=== PATIENT | female | born 1940 | race Caucasian/White ===

== ENCOUNTER 2018-09-29 09:40 | Emergency (ER) | payer MEDICARE, OTHER ==
[~2018-09-29] VITALS: Wt 65.6 kg
[~2018-09-29 09:40] MED LIST: DOCU100T PO; GABA100C14 PO; LOSA50TA14 PO; MELO7.5T38 PO
[2018-09-29] MEDS ORDERED: ASPIRIN 325 MG TAB PO STA (10:44)
--- NOTE | 2018-09-29 10:47 | ERD ---
ER Documentation Chief Complaint Chief Complaint hypertension 190/119, headache since last night, took meds this morning HPI 77-year-old female, history of hypertension, anxiety and osteoarthritis status post remote left knee replacement presents to the ED complaining of high blood pressure since yesterday with multiple somatic complaints. Mild, gradual onset, pressure-like headache but no visual changes, focal weakness or numbness. Palpitations and mild shortness of breath bu no chest pain, nausea, vomiting or diaphoresis. Left lower extremity swelling which seems mildly worse than usual but no recent trauma or injury. No relieving or exacerbating factors. Denies abdominal pain or back pain. No URI symptoms, cough or hemoptysis. No fevers, chills, anorexia, night sweats or weight loss. Admits to feeling anxious but denies depression. ROS All systems reviewed and are negative except as per history of present illness. Medications Home Meds Reported Medications Hydrochlorothiazide* (Hydrochlorothiazide*) 25 Mg Tab, 25 MG PO DAILY, #30 TAB 09/29/18 Losartan Potassium* (Losartan Potassium*) 50 Mg Tablet, 50 MG PO DAILY, TAB 08/23/18 Docusate Sodium* (Dok*) 100 Mg Tablet, 100 MG PO DAILY, #30 CAP 08/23/18 Meloxicam* (Meloxicam*) 7.5 Mg Tablet, 7.5 MG PO DAILY, #30 TAB 08/23/18 Gabapentin* (Gabapentin*) 100 Mg Capsule, 100 MG PO TID, #90 CAP 08/23/18 Allergies Allergies: Coded Allergies: No Known Allergy (Unverified , 09/29/18) PMhx/Soc Reviewed in chart. As per HPI. Medical and Surgical Hx: pt denies Medical Hx History of Surgery: Yes (LEFT FOOT BUNIONECTOMY) Anesthesia Reaction: No Hx Neurological Disorder: No Hx Respiratory Disorders: Yes (OCC FEELS SOB) Hx Cardiac Disorders: Yes (HTN) Hx Psychiatric Problems: No Hx Miscellaneous Medical Probl: Yes (HTN) Hx Alcohol Use: No Hx Substance Use: No Hx Tobacco Use: No Smoking Status: Never smoker FmHx No stroke or cancer Physical Exam Vitals Vital Signs Date Temp Pulse Resp B/P (MAP) Pulse Ox O2 O2 Flow FiO2 Time Delivery Rate 09/29/18 98.2 81 20 161/80 99 Room Air 16:43 (107) 09/29/18 98.4 86 20 147/69 100 Room Air 15:46 (95) 09/29/18 98.4 78 18 170/69 99 Room Air 14:00 (102) 09/29/18 98.4 81 18 179/88 100 Room Air 12:00 (118) 09/29/18 98.4 88 18 190/119 99 09:58 (142) Physical Exam Const: Moderate distress, anxious. Head: Atraumatic Eyes: Pupils equal reactive light, extraocular movements are intact. Normal Conjunctiva ENT: Normal External Ears, Nose and Mouth. Pharynx is clear without erythema or exudate. Neck: Full range of motion. Thyromegaly. No stridor. No meningismus. Resp: Breath sounds are equal and clear to auscultation bilaterally. No rales rhonchi or wheezes Cardio: Regular rate and rhythm, no murmurs. No chest wall tenderness. Abd: Soft, non tender, non distended. Normal bowel sounds Skin: No petechiae or rashes Back: No midline or flank tenderness Ext: No cyanosis. mild, nonpitting swelling left lower extremity below the knee. No calf tenderness or erythema. Status post left knee arthroplasty. No tenderness. Full range of motion. Pulses 4+ in all extremities. Neur: Awake and alert. Cranial nerves II through XII are grossly intact. Motor and sensory equal bilaterally. No focal deficit. Psych: Cooperative. Anxious but not depressed. Result Diagram: 09/29/18 1026 09/29/18 1026 Results 24 hrs Laboratory Tests Test 09/29/18 10:26 09/29/18 11:17 White Blood Count 7.4 10^3/ul Red Blood Count 4.06 10^6/ul Hemoglobin 11.7 g/dl Hematocrit 36.3 % Mean Corpuscular Volume 89.4 fl Mean Corpuscular Hemoglobin 28.8 pg Mean Corpuscular Hemoglobin Concent 32.2 g/dl Red Cell Distribution Width 13.2 % Platelet Count 299 10^3/UL Mean Platelet Volume 10.0 fl Immature Granulocytes % 0.500 % Neutrophils % 66.8 % Lymphocytes % 23.8 % Monocytes % 6.6 % Eosinophils % 1.9 % Basophils % 0.4 % Nucleated Red Blood Cells % 0.0 /100WBC Immature Granulocytes # 0.040 10^3/ul Neutrophils # 4.9 10^3/ul Lymphocytes # 1.8 10^3/ul Monocytes # 0.5 10^3/ul Eosinophils # 0.1 10^3/ul Basophils # 0.0 10^3/ul Nucleated Red Blood Cells # 0.0 10^3/ul Sodium Level 140 mmol/L Potassium Level 3.9 mmol/L Chloride Level 105 mmol/L Carbon Dioxide Level 27 mmol/L Anion Gap 8 Blood Urea Nitrogen 17 mg/dl Creatinine 0.89 mg/dl Est Glomerular Filtrat Rate mL/min mL/min Glucose Level 97 mg/dl Calcium Level 10.2 mg/dl Total Bilirubin 0.4 mg/dl Direct Bilirubin 0.00 mg/dl Indirect Bilirubin 0.4 mg/dl Aspartate Amino Transf (AST/SGOT) 23 IU/L Alanine Aminotransferase (ALT/SGPT) 18 IU/L Alkaline Phosphatase 88 IU/L Total Protein 6.8 g/dl Albumin 3.9 g/dl Globulin 2.90 g/dl Albumin/Globulin Ratio 1.34 Thyroid Stimulating Hormone (TSH) 0.504 MIU/L Urine Color STRAW Urine Clarity CLEAR Urine pH 7.0 Urine Specific Justin 1.005 Urine Ketones NEGATIVE mg/dL Urine Nitrite NEGATIVE mg/dL Urine Bilirubin NEGATIVE mg/dL Urine Urobilinogen NEGATIVE mg/dL Urine Leukocyte Esterase NEGATIVE Abbie/ul Urine Microscopic RBC 1 /HPF Urine Microscopic WBC 3 /HPF Urine Hemoglobin 1+ mg/dL Urine Glucose NEGATIVE mg/dL Urine Total Protein NEGATIVE mg/dl Current Medications Medications Dose Sig/Michelle Start Time Status Last (Trade) Ordered Route PRN Stop Time Admin Dose Reason Admin Aspirin 325 mg ONCE STAT 09/29/18 DC (Aspirin) PO 10:44 09/29/18 10:47 650 mg ONCE ONCE 09/29/18 DC 09/29/18 Acetaminophen PO 11:00 11:21 (Tylenol 09/29/18 11:01 Tab) Aspirin 81 mg STK-MED 09/29/18 DC (Aspirin) ONCE .ROUTE 11:07 09/29/18 11:08 IV Flush 10 ml STK-MED 09/29/18 DC (NS 10 ml) ONCE .ROUTE 12:28 09/29/18 12:29 Sodium 100 ml @ ud STK-MED 09/29/18 DC Chloride ONCE .ROUTE 12:28 09/29/18 12:29 Iohexol 150 ml STK-MED 09/29/18 DC (Omnipaque ONCE .ROUTE 12:28 300mg/ ml) 09/29/18 12:29 Procedures/MDM DOCUMENTS REVIEWED: ED nurse, prior records EKG: Time: 1317. Sinus rhythm. Ventricular rate 100, normal MA and QRS intervals. No acute ST segment elevation or depression. No axis deviation or ectopy. My Interpretation: Normal EKG IMAGING: PROCEDURE: XR Chest. CLINICAL INDICATION: Chest pain TECHNIQUE: Single frontal view of the chest was obtained. COMPARISON: None FINDINGS: The heart is within normal limits. The thoracic aorta is calcified. There is increased right paratracheal density, which is likely vascular in nature. There is mild shift of the trachea to the right. A mediastinal mass cannot be excluded. There is no focal infiltrate. There is no pleural effusion or pneumothorax. RPTAT: AA IMPRESSION: Mild shift of the trachea to the right. A thyroid or mediastinal mass cannot be excluded. Follow-up CT chest with contrast is recommended. Calcified aorta consistent with atherosclerotic disease. .Omkar Kelley MD, MD Date Time Electronically viewed and signed by .Omkar Kelley MD, MD on 09/29/2018 11:36 PROCEDURE: US Lower extremity Venous. CLINICAL INDICATION: Left leg pain TECHNIQUE: Multiple sonographic images of the left lower extremity deep venous system was obtained utilizing grayscale, color-flow, compressive sonography and doppler imaging with augmentation. The images were reviewed on a PACS workstation. COMPARISON: None. FINDINGS: There is normal compressibility and flow within the left common femoral, deep femoral, superficial femoral, posterior tibial, peroneal and popliteal veins. IMPRESSION: No sonographic evidence for deep venous thrombosis. RPTAT: AA .Madi Phelan MD, Date Time Electronically viewed and signed by .Madi Phelan MD, MD on 09/29/2018 12:06 .J/ PROCEDURE: CT Chest with contrast. CLINICAL INDICATION: Mass TECHNIQUE: CT scan of the chest with contrast was performed on a multidetector high-resolution CT scanner. The patient was scanned following the uncomplicated intravenous administration of 100 cc of Omnipaque-300 contrast. Coronal and sagittal reformatted images were obtained from the axial source images. Images were reviewed on a high-resolution PACS workstation. The total exam CTDI equals 8.3 mGy and the total exam DLP equals 332 mGy-cm. DICOM images are available. One or more of the following dose reduction techniques were utilized: 1.) Automated exposure control 2.) Adjustment of the mA +/- kV according to patient's size 3.) Use of iterative reconstruction technique. COMPARISON: Chest x-ray earlier same date FINDINGS: The lungs are clear. No focal opacification, effusion, pneumothorax, edema, or nodules are seen. There is no pulmonary infiltrate. No mass lesion to suggest neoplasm is identified. The central tracheobronchial tree is clear. The mediastinum is unremarkable without evidence for mass or lymphadenopathy. There is asymmetric enlargement of the left lobe of the thyroid gland with a 3 cm complex solid and cystic nodule. This is causing the trachea to be shifted to the right. The vascular structures of the mediastinum are normal in course and caliber. Noted is a hiatal hernia.. The heart size is normal without evidence for pericardial thickening or effusion. Calcified nonenlarged right hilar nodes are present compatible with old granulomatous disease. The axillary regions, subpectoral regions, and supraclavicular regions are all unremarkable. The surrounding chest wall is unremarkable. Imaging obtained through the upper abdomen reveals no acute abnormality. Bilateral parapelvic renal cysts are present. The surrounding osseous structures are remarkable for degenerative spondylosis of the spine. No osteolytic or osteoblastic lesion is detected. There is kyphoscoliosis of the thoracic lumbar junction with mild chronic superior endplate compression fracture of T11. IMPRESSION: Enlarged left lobe thyroid gland with 3 cm complex mass causing mediastinal shift. Question adenoma. Correlation with ultrasound is suggested. No lung infiltrate or mass. Hiatal hernia. Old granulomatous disease. Parapelvic renal cysts. Kyphoscoliosis thoracic lumbar junction with mild chronic superior endplate compression fracture of T11 . .Chase Ash MD, Date Time Electronically viewed and signed by .Chase Ash MD, on 09/29/2018 12:58 .A/ REEXAMINATION/REEVALUATION: Time: 15:46 BP 147/69 [employer]-year-old female, history of hypertension, anxiety and osteoarthritis status post remote left knee replacement presents to the ED complaining of high blood pressure since yesterday with multiple complaints including hypertension, headache, palpitations, leg swelling and anxiety. CBC remarkable for mild anemia but no leukocytosis or thrombocytopenia. Chemistry reveals no evidence of renal insufficiency or electrolyte abnormalities. Liver function tests are normal. EKG is negative for ischemia or dysrhythmia. Chest x-ray negative for infiltrate or effusion but reveals a paratracheal mass with tracheal deviation. Further evaluation with CT was recommended and reveals a 3 cm thyroid mass possibly an adenoma. TSH is normal. Venous Doppler of the left lower extremity to evaluate for DVT is negative. Patient presents with accelerated hypertension exacerbated by underlying anxiety that resolved without treatment. ACS, pulmonary embolism and aortic dissection unlikely. No evidence of hyperthyroidism or thyroid storm. Mild, generalized, non-acute onset non- maximal headache not consistent with subarachnoid hemorrhage. No visual changes focal deficits or indication for neuroimaging. Admission was recommended to further evaluate this thyroid mass however the patient in consultation with her daughter prefer discharge and outpatient followup. Stable for discharge with precautionary instructions and urgent outpatient follow-up as counseled. Though the patient's latest blood pressure was elevated (>120/80), the patient has a known history of hypertension and urged to pursue adjustment of their medical therapy within 2 days with their primary care physician. Please refer to the medication reconciliation form for the current list of hypertensive medications. Counseled patient and daughter regarding diagnostic workup, diagnosis and need for urgent followup or return to ED if symptoms recur, worsen or any other concerns. Understand that the etiology of the thyroid mass is not determined and neoplasm is not ruled. Departure Diagnosis: Primary Impression: Accelerated hypertension Additional Impressions: Thyroid mass Anxiety Left leg swelling H/O total knee replacement Laterality: left Qualified Codes: Z96.652 - Presence of left artificial knee joint Condition: Stable DIANN DAVIS MD 23, 2019 10:47
[2018-09-29] MEDS ORDERED: HYDR25TA6 PO (10:56)
[2018-09-29] MEDS ORDERED: ACETAMINOPHEN 325 MG TAB PO ONE (11:00)
[2018-09-29] MEDS ORDERED: ASPIRIN 81 MG TAB ONE (11:07)
[2018-09-29] MEDS ORDERED: IOHEXOL 300MG/ML 150 ML BTL ONE (12:28)
[2018-09-29] MEDS ORDERED: SOD CHLORIDE 0.9% 100 ML ONE (12:28)
[2018-09-29 16:43] VITALS: BP 161/80; PULSE 81; RESP 20
== END 2018-09-29 16:59 | disposition home or self-care (01) ==
LOC: E/R 09:40
DX: E04.9 Nontoxic goiter, unspecified (principal); I10 Essential (primary) hypertension
CPT/HCPCS: 71045; 71260; 80053; 81001; 84443; 85025; 93005; 93971; Q9967; 36415